=== PATIENT | female | born 1990 | race Caucasian/White ===

== ENCOUNTER 2017-03-19 06:29 | Emergency (ER) | payer MEDICAID ==
[~2017-03-19] VITALS: Ht 162.6 cm; Wt 77.1 kg
[2017-03-19] MEDS ORDERED: IV NORMAL SALINE 1000ML BAG 1,000 ML IV SCH (06:57)
[2017-03-19] MEDS ORDERED: KETOROLAC TROMETHAMINE 30 MG/ML INJ. IV ONE (07:00)
[2017-03-19] MEDS ORDERED: ONDANSETRON PF 4 MG/2 ML VIAL. IV ONE (07:00)
--- NOTE | 2017-03-19 07:05 | PHYS DOC ---
Past Medical History Past Medical History: No Pertinent History Past Surgical History: Additional Past Surgical Histo: TUBES TIED Alcohol Use: Occasionally Drug Use: Methamphetamine Adult General Chief Complaint Chief Complaint: ABDOMINAL PAIN HPI HPI Patient is a 26 year old female who presents with abdominal pain nausea vomiting as well as a sore throat that began 2 days ago. Patient has been going through rehabilitation for methamphetamine abuse over the last several weeks. Her last usage was several weeks ago but over the course of the last 3 days she is moved out of an apartment back home with her mother she believes she may have overexerted herself during that move. She began to fell lightheaded, sore throat without cough, low-grade fever to 101.2 without change in voice, but mild body aches and myalgias, lower back pain and dysuria. This dysuria urgency or frequency began 2 days ago without vaginal bleeding or discharge. She denies any lower abdominal pain. She took some Motrin for her fever and pain which did improve it only slightly. She denies any sick contacts, she denies any recent drug abuse, denies any travel outside the country or recent antibiotics. Pain presently is a mild 7 of 10 in her lower back and legs. She denies any numbness , tingling, other symptoms like chest pain, shortness of breath or productive cough. Review of Systems Review of Systems Constitutional: She describes some fevers and chills Eyes: Denies change in visual acuity, redness, or eye pain [] HENT: Denies nasal congestion or sore throat [] Respiratory: Denies cough or shortness of breath [] Cardiovascular: No additional information not addressed in HPI [] GI: Denies any abdominal pain but is complaining of nausea and vomiting without loose stool or diarrhea. [] : As complain of dysuria urgency or frequency Musculoskeletal: She describes lower back pain described as achy and radiation of pain to the lower back. She also describes myalgias and lower extremity's. Integument: Denies rash or skin lesions [] Neurologic: Denies headache, focal weakness or sensory changes [] Endocrine: Denies polyuria or polydipsia [] Current Medications Current Medications Current Medications Medications (Trade) Dose Ordered Sig/Marlon Start Time Stop Time Status Last Admin Dose Admin Dexamethasone Sodium Phosphate (Decadron) 10 mg 1X ONCE 03/19/17 07:15 03/19/17 07:16 DC 03/19/17 07:19 10 MG Ketorolac Tromethamine (Toradol) 30 mg 1X ONCE 03/19/17 07:00 03/19/17 07:01 DC 03/19/17 07:15 30 MG Lorazepam (Ativan) 1 mg 1X ONCE 03/19/17 07:45 03/19/17 07:46 DC 03/19/17 07:55 1 MG Ondansetron HCl (Zofran) 4 mg 1X ONCE 03/19/17 07:00 03/19/17 07:01 DC 03/19/17 07:13 4 MG Sodium Chloride (Normal Saline Flush) 10 ml QSHIFT PRN 03/19/17 07:00 03/19/17 07:11 10 ML Allergies Allergies Allergies Coded Allergies Type Severity Reaction Last Updated Verified No Known Drug Allergies 03/19/17 No Physical Exam Physical Exam Signs reviewed Constitutional: Well developed, well nourished, she is obvious uncomfortable actively nauseated without vomiting. HENT: Normocephalic, atraumatic, bilateral external ears normal, oropharynx moist, is consider oral exudates with tonsillar hypertrophy and erythema., nose normal. As noted anterior lymphadenopathy that is tender to palpation. [] Eyes: PERRLA, EOMI, conjunctiva normal, no discharge. [] Neck: Normal range of motion, no tenderness, supple, no stridor. [] Cardiovascular:Heart rate regular rhythm, no murmur [] Lungs & Thorax: Bilateral breath sounds clear to auscultation [] Abdomen: Bowel sounds normal, soft, no tenderness, no masses, no pulsatile masses. [] Skin: Warm, dry, no erythema, no rash. [] Back: No tenderness, she has tenderness in the lower lumbar spine fracture spine muscles bilaterally. Extremities: No tenderness, no cyanosis, no clubbing, ROM intact, no edema. [] Neurologic: Alert and oriented X 3, normal motor function, normal sensory function, no focal deficits noted. [] Psychologic: Is in relatively anxious but is asking for no pain medications and is asking for drug screen. Current Patient Data Vital Signs Vital Signs Date Time Temp Pulse Resp B/P (MAP) Pulse Ox O2 Delivery O2 Flow Rate FiO2 03/19/17 06:37 Room Air Lab Values Laboratory Tests Test 03/19/17 05:55 03/19/17 06:45 03/19/17 06:50 03/19/17 07:26 POC Urine HCG, Qualitative Hcg negative (Negative) Urine Collection Type Void Urine Color Yellow Urine Clarity Cloudy Urine pH 6.0 Urine Specific [place] 1.025 Urine Protein 100 mg/dL (NEG-TRACE) Urine Glucose (UA) Negative mg/dL (NEG) Urine Ketones (Stick) >=80 mg/dL (NEG) Urine Blood Small (NEG) Urine Nitrite Negative (NEG) Urine Bilirubin Small (NEG) Urine Urobilinogen Dipstick 1.0 mg/dL (0.2 mg/dL) Urine Leukocyte Esterase Moderate (NEG) Urine RBC 11-20 /HPF (0-2) Urine WBC >40 /HPF (0-4) Urine Squamous Epithelial Cells Many /LPF Urine Bacteria Many /HPF (0-FEW) Urine Mucus Marked /LPF Urine Opiates Screen Neg (NEG) Urine Methadone Screen Neg (NEG) Urine Barbiturates Neg (NEG) Urine Phencyclidine Screen Neg (NEG) Urine Amphetamine/Methamphetamine Pos (NEG) Urine Benzodiazepines Screen Neg (NEG) Urine Cocaine Screen Neg (NEG) Urine Cannabinoids Screen Neg (NEG) Urine Ethyl Alcohol Neg (NEG) White Blood Count 12.6 x10^3/uL (4.0-11.0) H Red Blood Count 4.71 x10^6/uL (3.50-5.40) Hemoglobin 13.4 g/dL (12.0-15.5) Hematocrit 39.9 % (36.0-47.0) Mean Corpuscular Volume 85 fL (79-100) Mean Corpuscular Hemoglobin 29 pg (25-35) Mean Corpuscular Hemoglobin Concent 34 g/dL (31-37) Red Cell Distribution Width 14.9 % (11.5-14.5) H Platelet Count 201 x10^3/uL (140-400) Neutrophils (%) (Auto) 90 % (31-73) H Lymphocytes (%) (Auto) 5 % (24-48) L Monocytes (%) (Auto) 5 % (0-9) Eosinophils (%) (Auto) 0 % (0-3) Basophils (%) (Auto) 0 % (0-3) Neutrophils # (Auto) 11.4 x10^3uL (1.8-7.7) H Lymphocytes # (Auto) 0.6 x10^3/uL (1.0-4.8) L Monocytes # (Auto) 0.6 x10^3/uL (0.0-1.1) Eosinophils # (Auto) 0.0 x10^3/uL (0.0-0.7) Basophils # (Auto) 0.0 x10^3/uL (0.0-0.2) Platelet Estimate Pending Sodium Level 134 mmol/L (136-145) L Potassium Level 3.0 mmol/L (3.5-5.1) L Chloride Level 95 mmol/L (98-107) L Carbon Dioxide Level 29 mmol/L (21-32) Anion Gap 10 (6-14) Blood Urea Nitrogen 7 mg/dL (7-20) Creatinine 1.1 mg/dL (0.6-1.0) H Estimated GFR (Cockcroft-Gault) 60.5 BUN/Creatinine Ratio 6 (6-20) Glucose Level 182 mg/dL (70-99) H Calcium Level 8.5 mg/dL (8.5-10.1) Total Bilirubin 0.3 mg/dL (0.2-1.0) Aspartate Amino Transferase (AST) 16 U/L (15-37) Alanine Aminotransferase (ALT) 19 U/L (14-59) Alkaline Phosphatase 73 U/L (46-116) Creatine Kinase 28 U/L (26-192) Creatine Kinase MB (Mass) < 0.5 ng/mL (0.0-3.6) Creatine Kinase MB Relative Index % (0-4) Total Protein 7.5 g/dL (6.4-8.2) Albumin 3.2 g/dL (3.4-5.0) L Albumin/Globulin Ratio 0.7 (1.0-1.7) L Lipase 70 U/L (73-393) L Influenza Type A Antigen Negative (NEGATIVE) Influenza Type B Antigen Negative (NEGATIVE) Laboratory Tests 03/19/17 06:50 Laboratory Tests 03/19/17 06:50 EKG EKG [] Radiology/Procedures Radiology/Procedures [] Course & Med Decision Making Course & Med Decision Making Pertinent Labs and Imaging studies reviewed. (See chart for details) She presents with fevers, lower back pain, UTI symptoms, sore throat, ear pain, and general myalgias. She's been screened for rapid strep, influenza, UTI, pyonephritis, and other infectious etiologies that be causing her symptoms. On review of her nursing notes, vital signs and laboratory work as been determined that this patient has recently used amphetamines in the past her last seizure she claims was greater than a week ago although her urinalysis is positive for a amphetamines. She may be expressing some withdrawal symptoms from her drug usage. At this point patient will be given an oral dose of antibiotics ciprofloxacin for approximately 10 days to treat her UTI and subclinical pyonephritis. She'll be given some nausea medications to treat her nausea. Soft on reexamination of her abdomen. I doubt appendicitis, she is not I doubt ectopic . She'll be also given some antiemetics, and pain medications include an anti-inflammatory without narcotics because of her prior indiscretion with drug abuse. Impression: UTI, subclinical pyelonephritis, hypokalemia, mild dehydration, myalgias. Nausea without vomiting Disposition: PCP follow-up in 12-24 hours. Patient was placed on ciprofloxacin, Naprosyn, Zofran, Pyridium. [] Dragon Disclaimer Dragon Disclaimer This electronic medical record was generated, in whole or in part, using a voice recognition dictation system. Departure Departure Impression: Primary Impression: Abdominal pain Additional Impressions: Urinary tract infection Myalgia Nausea and vomiting Hypokalemia Disposition: 01 HOME, SELF-CARE Condition: IMPROVED Patient Instructions: Abdominal Pain (Nonspecific), Hypokalemia, Nausea and Vomiting, Urinary Tract Infection Additional Instructions: please follow-up your primary care doctor for continued management of year chronic addiction issues. I would advise that you utilize social work and the local health network to improve access for care for addiction issues please return for any fevers greater than 102.2 despite treatment increasing lower back pain or belly pain and inability to tolerate her medications. Scripts Ondansetron (ZOFRAN ODT) 4 Mg Tab.rapdis 4 MG PO BID Y for NAUSEA/VOMITING for 5 Days, #10 TAB Prov: CARMELLA BALLESTEROS MD 03/19/17 Phenazopyridine Hcl (PYRIDIUM) 200 Mg Tablet 1 MG PO TID for 3 Days, TAB Prov: CARMELLA BALLESTEROS MD 03/19/17 Potassium Chloride (POTASSIUM CHLORIDE) 10 Meq Capsule.er 10 MEQ PO DAILY for 10 Days, #10 TAB.SR Prov: CARMELLA BALLESTEROS MD 03/19/17 Naproxen (NAPROSYN) 500 Mg Tablet 1 TAB PO BID, #14 TAB 1 Refill Prov: CARMELLA BALLESTEROS MD 03/19/17 Ciprofloxacin Hcl (CIPRO) 500 Mg Tablet 1 TAB PO BID, #20 TAB Prov: CARMELLA BALLESTEROS MD 03/19/17 Problem Qualifiers CARMELLA BALLESTEROS MD Mar 19, 2017 07:05
[2017-03-19] MEDS: 0.9 % SODIUM CHLORIDE 10 ML DISP.SYRIN. IV PRN ×2 (07:11→08:23)
[2017-03-19 07:13] LABS: BASO % 0 % (0-3); EOS % 0 % (0-3); HEMATOCRIT 39.9 % (36.0-47.0); HEMOGLOBIN 13.4 g/dL (12.0-15.5); LYMPH # 0.6 x10^3/uL (1.0-4.8); LYMPH % 5 % (24-48); MEAN CORPUSCULAR HEMOGLOBIN 29 pg (25-35); MEAN CORPUSCULAR HGB CONC 34 g/dL (31-37); MEAN CORPUSCULAR VOLUME 85 fL (79-100); MONO % 5 % (0-9); NEUT % 90 % (31-73); PLATELET COUNT 201 x10^3/uL (140-400); RED BLOOD COUNT 4.71 x10^6/uL (3.50-5.40); RED CELL DISTRIBUTION WIDTH 14.9 % (11.5-14.5); WHITE BLOOD COUNT 12.6 x10^3/uL (4.0-11.0)
[2017-03-19] MEDS ORDERED: DEXAMETHASONE SOD PHOS 20 MG/5 ML VIAL. IV ONE (07:15)
[2017-03-19 07:23] LABS: CALCIUM 8.5 mg/dL (8.5-10.1); CREATININE 1.1 mg/dL (0.6-1.0); GFR 60.5
[2017-03-19 07:29] LABS: BILIRUBIN,URINE SMALL (NEG); GLUCOSE,URINE NEGATIVE (NEG); NITRITE,URINE NEGATIVE (NEG); PROTEIN,URINE 100 mg/dL (NEG-TRACE)
[2017-03-19 07:30] LABS: ALBUMIN 3.2 g/dL (3.4-5.0); ALBUMIN/GLOBULIN RATIO 0.7 (1.0-1.7); TOTAL BILIRUBIN 0.3 mg/dL (0.2-1.0); TOTAL PROTEIN 7.5 g/dL (6.4-8.2)
[2017-03-19 07:31] LABS: BACTERIA,URINE MANY /HPF (0-FEW); SQUAMOUS EPITHELIAL CELL,UR MANY /LPF; WBC,URINE >40 /HPF (0-4)
[2017-03-19 07:36] LABS: BARBITURATES NEG (NEG); BENZODIAZEPINES NEG (NEG); COCAINE NEG (NEG); METHADONE NEG (NEG); OPIATES NEG (NEG); PHENCYCLIDINE NEG (NEG)
[2017-03-19 07:40] LABS: CKMB MASS < 0.5 ng/mL (0.0-3.6); CREATINE KINASE 28 U/L (26-192)
[2017-03-19 07:49] LABS: CANNABINOIDS NEG (NEG)
[2017-03-19 07:54] LABS: OBC FLU VALID
[2017-03-19 08:00] VITALS: BP 85/48
[2017-03-19] MEDS ORDERED: CIPROFLOXACIN HCL 250 MG TABLET. PO ONE (08:15)
[2017-03-19] MEDS ORDERED: PHEN-318 PO (08:22)
[2017-03-19] MEDS ORDERED: NAPR500T PO (08:22)
[2017-03-19] MEDS ORDERED: ONDA4TAB10 PO (08:22)
[2017-03-19] MEDS ORDERED: CIPR500T94 PO (08:22)
[2017-03-19] MEDS ORDERED: POTASSIUM CHLO10 MEQ PO (08:22)
[2017-03-19] MEDS ORDERED: ACYC800T PO (08:46)
[2017-03-19 09:34] LABS: PLT ESTIMATE ADEQUATE (ADEQUATE)
[2017-03-19 11:16] LABS: NEGATIVE OBC STREP NEG; POSITIVE OBC STREP POS
== END 2017-03-19 09:18 | disposition home or self-care (01) ==
LOC: ER 06:29
DX: N39.0 Urinary tract infection, site not specified (principal); R11.2 Nausea with vomiting, unspecified; E87.6 Hypokalemia; M79.1 Myalgia; E86.0 Dehydration; N12 Tubulo-interstitial nephritis, not specified as acute or chronic; F15.10 Other stimulant abuse, uncomplicated; Z98.890 Other specified postprocedural states
CPT/HCPCS: 36415; 80053; 80305; 80320; 81001; 81025; 82553; 83690; 85007; 85027; 87070; 87086; 87804; 87880; 96361; 96374; 96375; 99284; J1100; J1885; J2060; J2405; J7030; G0481